=== PATIENT | female | born 1990 | race Caucasian/White ===

== ENCOUNTER 2024-11-21 11:25 | Emergency (ER) | payer OTHER, SELFPAY ==
[2024-11-21 11:37] VITALS: BP 146/82; PULSE 87; TEMP 36.7; O2SAT 100; BMI 2929.5
--- NOTE | 2024-11-21 12:04 | ED_ITS ---
HPI HPI - General Adult General Chief complaint: Urogenital-Female Stated complaint: FLANK PAIN Time Seen by Provider: 11/21/24 12:01 Source: patient Mode of arrival: walk-in History of Present Illness HPI narrative: 33-year-old female presents to the emergency department for right flank pain. She has had it for 2 weeks and it never goes away. It waxes and wanes. It was not precipitated by any trauma or injury. No dysuria or hematuria. She is never had pain like this before and she is never had a kidney stone. The pain is moderate to severe. Related Data Home Medications ?Medication ?Instructions ?Recorded ?Confirmed No Known Home Medications 11/21/24 11/21/24 Allergies Allergy/AdvReac Type Severity Reaction Status Date / Time No Known Drug Allergies Allergy Verified 11/21/24 11:37 Opioid HPI Opioid Management Most Recent Opioid Data: No Data to Display Review of Systems ROS Narrative A ten point review of systems is negative except as noted above. PFSH PFSH Social History Little interest or pleasure in doing things: not at all Feeling down, depressed, or hopeless: not at all Exam Narrative Exam Narrative: Nurses note and vital signs reviewed and patient is not hypoxic. General: The patient appears uncomfortable when she moves. Skin: Warm, dry, no pallor noted. There is no rash noted. Head: Normocephalic, atraumatic Eye: Normal conjunctiva, no drainage Ears, Nose, Mouth, and Throat: oral mucosa is moist. Nares patent. Cardiovascular: Regular Rate and Rhythm Respiratory: Patient is in no distress, no accessory muscle use, lungs are clear to auscultation, no wheezing, rales or rhonchi Back: non-tender, no CVA tenderness bilaterally to percussion. There is no bruise or rash on her back. GI: Soft and nontender Musculoskeletal: The patient has no evidence of calf tenderness, no pitting edema, symmetrical pulses noted bilaterally Neurological: A&O, normal speech Psychiatric: Cooperative Constitutional Vital Signs, click to edit/add: Last Vital Signs Temp 98.1 F 11/21/24 11:37 Pulse 87 11/21/24 11:37 Resp 16 11/21/24 11:37 BP 146/82 H 11/21/24 11:37 Pulse Ox 100 11/21/24 11:37 O2 Del Method Room Air 11/21/24 11:37 Course Vital Signs Vital signs: Vital Signs Temperature 98.1 F 11/21/24 11:37 Pulse Rate 87 11/21/24 11:37 Respiratory Rate 16 11/21/24 11:37 Blood Pressure 146/82 H 11/21/24 11:37 Pulse Oximetry 100 11/21/24 11:37 Oxygen Delivery Method Room Air 11/21/24 11:37 Temperature 98.1 F 11/21/24 11:37 Pulse Rate 87 11/21/24 11:37 Respiratory Rate 16 11/21/24 11:37 Blood Pressure 146/82 H 11/21/24 11:37 Pulse Oximetry 100 11/21/24 11:37 Oxygen Delivery Method Room Air 11/21/24 11:37 Medical Decision Making MDM Narrative Medical decision making narrative: CT scan is consistent with constipation. I have no clinical suspicion of appendicitis in this patient. She was recommended MiraLAX. Treatment diagnosis and follow-up were discussed with the patient. Differential Diagnosis Differential Diagnosis: Kidney stone, UTI, pyelonephritis, constipation Lab Data Lab results reviewed: Yes I reviewed the patient's lab results Labs: Lab Results 11/21/24 11/21/24 Range/Units 11:35 11:50 WBC 10.3 (4.0-11.0) 10^3/uL RBC 4.74 (4.20-5.40) 10^6/uL Hgb 14.0 (12.0-16.0) g/dL Hct 42.1 (36.0-48.0) % MCV 88.8 (81.0-99.0) fL MCH 29.5 (26.7-34.0) pg MCHC 33.3 (29.9-35.2) g/dL RDW 13.0 (11.0-15.0) % Plt Count 387 (150-450) 10^3/uL MPV 8.8 L (9.5-13.5) fL Neut % (Auto) 62.9 (43.0-75.0) % Lymph % (Auto) 28.9 (20.5-60.0) % [place] % (Auto) 5.9 (1.7-12.0) % Eos % (Auto) 1.2 (0.9-7.0) % Baso % (Auto) 0.7 (0.2-2.0) % Neut # (Auto) 6.5 (1.4-6.5) 10^3/uL Lymph # (Auto) 3.0 (1.2-3.8) 10^3/uL [place] # (Auto) 0.6 (0.3-0.8) 10^3/uL Eos # (Auto) 0.1 (0.0-0.7) 10^3/uL Baso # (Auto) 0.1 (0.0-0.1) 10^3/uL Abs Immat Gran (auto) 0.04 H (0.00-0.03) 10^3/uL Imm/Tot Granulo (auto) 0.4 (0.0-0.5) % Sodium 141 (136-145) mmol/L Potassium 3.8 (3.5-5.1) mmol/L Chloride 103 (98-107) mmol/L Carbon Dioxide 28.7 (21.0-32.0) mmol/L Anion Gap 13.1 BUN 7.0 (7.0-18.0) mg/dL Creatinine 0.71 (0.55-1.02) mg/dL Est GFR ( Amer) >60 (>=60 mL/min/1.73m^2) Est GFR (Non-Af Amer) >60 (>=60 mL/min/1.73m^2) BUN/Creatinine Ratio 9.9 Glucose 91 (74-106) mg/dL Calcium 8.5 (8.5-10.1) mg/dL Serum HCG, Qual Negative (NEGATIVE) Urine Color Lt. yellow (YELLOW) Urine Clarity Clear (CLEAR) Urine pH 6.5 (5.0-9.0) Ur Specific [place] 1.010 (1.005-1.025) Urine Protein Negative (NEG/TRACE) mg/dL Urine Glucose (UA) Negative (NEGATIVE) mg/dL Urine Ketones Negative (NEGATIVE) mg/dL Urine Occult Blood Negative (NEGATIVE) Urine Nitrite Negative (NEGATIVE) Urine Bilirubin Negative (NEGATIVE) Urine Urobilinogen 0.2 (0.2-1.0) EU/dL Ur Leukocyte Esterase Negative (NEGATIVE) Urine RBC 0-2 (0-2) #/HPF Urine WBC 0-2 A (NONE SEEN) #/HPF Ur Squamous Epith Cells Few A (NONE/RARE) #/LPF Urine Crystals None seen (None Seen) #/HPF Urine Bacteria Trace A (NONE SEEN) #/HPF Urine Casts None seen (NONE SEEN) #/LPF Urine Mucus Trace A (NONE SEEN) Discharge Plan Discharge Chief Complaint: Urogenital-Female Clinical Impression: Constipation Patient Disposition: Home, Self-Care Time of Disposition Decision: 14:57 Condition: Good Mode of Transportation: Private Vehicle Prescriptions / Home Meds: No Action No Known Home Medications Print Language: Danish Instructions: Constipation (ED) Additional Instructions: [id number] MiraLAX for constipation Referrals: Physician,Non-Staff, [Primary Care Provider] - 1 week
[2024-11-21 12:23] LABS: Basophils Absolute Auto 0.1 10^3/uL (0.0-0.1); Basophils Percent Auto 0.7 % (0.2-2.0); Eosinophils Absolute Auto 0.1 10^3/uL (0.0-0.7); Eosinophils Percent Auto 1.2 % (0.9-7.0); Hematocrit 42.1 % (36.0-48.0); Immature Granulocytes Abs Auto 0.04 10^3/uL (0.00-0.03); Immature Granulocytes Pct Auto 0.4 % (0.0-0.5); Lymphocytes Percent Auto 28.9 % (20.5-60.0); Mean Corpuscular HGB Conc 33.3 g/dL (29.9-35.2); Mean Corpuscular Hemoglobin 29.5 pg (26.7-34.0); Mean Corpuscular Volume 88.8 fL (81.0-99.0); Mean Platelet Volume 8.8 fL (9.5-13.5); Monocytes Absolute Auto 0.6 10^3/uL (0.3-0.8); Monocytes Percent Auto 5.9 % (1.7-12.0); Neutrophils Absolute Auto 6.5 10^3/uL (1.4-6.5); Neutrophils Percent Auto 62.9 % (43.0-75.0); Platelet Count 387 10^3/uL (150-450); Red Blood Count 4.74 10^6/uL (4.20-5.40); White Blood Count 10.3 10^3/uL (4.0-11.0)
[2024-11-21 12:29] LABS: Bilirubin Urine NEGATIVE (NEGATIVE); Blood Urine NEGATIVE (NEGATIVE); Clarity Urine CLEAR (CLEAR); Color Urine LT. YELLOW (YELLOW); Glucose Urine UA NEGATIVE (NEGATIVE); Ketones Urine NEGATIVE (NEGATIVE); Leukocyte Esterase Urine NEGATIVE (NEGATIVE); Nitrite Urine NEGATIVE (NEGATIVE); Protein Urine NEGATIVE (NEG/TRACE); Urobilinogen Urine 0.2 EU/dL (0.2-1.0); pH Urine 6.5 (5.0-9.0)
[2024-11-21 12:30] LABS: Anion Gap 13.1; BUN Creatinine Ratio 9.9; Calcium 8.5 mg/dL (8.5-10.1); Carbon Dioxide 28.7 mmol/L (21.0-32.0); Chloride 103 mmol/L (98-107); Estimated GFR (African America >60 (>=60 mL/min/1.73m^2); Estimated GFR (Non-African Ame >60 (>=60 mL/min/1.73m^2); Glucose 91 mg/dL (74-106); Potassium 3.8 mmol/L (3.5-5.1); Sodium 141 mmol/L (136-145)
[2024-11-21 12:31] LABS: HCG Qualitative NEGATIVE (NEGATIVE); Internal Control Within Normal Limits
[2024-11-21 13:06] LABS: Bacteria Urine TRACE #/HPF (NONE SEEN); Cast Seen? NONE SEEN #/LPF (NONE SEEN); Crystals Seen? None Seen #/HPF (None Seen); Mucus Urine TRACE (NONE SEEN); RBC Urine 0-2 #/HPF (0-2); Squamous Epithelial Cell Urine FEW #/LPF (NONE/RARE); WBC Urine 0-2 #/HPF (NONE SEEN)
--- NOTE | 2024-11-21 13:12 | CT_ITS ---
The [address] [address] Patient Name: CORIE GUIDRY MRN: [id number] date: 1990 Sex: F Assigned Patient Location: ER Current Patient Location: ER Accession/Order Number: [id number] Exam Date: 11/21/2024 13:44 Report Date: 11/21/2024 14:26 At the request of: WES NUNES Procedure: CT abdomen pelvis wo con EXAM: CT abdomen pelvis wo con HISTORY: Right flank pain COMPARISON: None. TECHNIQUE: Routine CT abdomen/pelvis without intravenous contrast. FINDINGS: The lung bases are unremarkable. The liver, contracted gallbladder, biliary tree, pancreas, spleen and bilateral adrenal glands are unremarkable. The bilateral kidneys and bilateral ureters are unremarkable. There is no renal or ureteral calculus or obstructive uropathy. Nonobstructive bowel gas pattern with a large amount of stool within the colon. There are colonic diverticula without diverticulitis. The appendix is mildly prominent measuring up to 6.9 mm in transverse dimension. There is no periappendiceal inflammatory reaction. Correlate with clinical and laboratory findings. The distal esophagus, stomach and small bowel are unremarkable. The abdominal aorta and the IVC are unremarkable. There is hazy attenuation within the mesentery and numerous small scattered mesenteric lymph nodes. Correlate with clinical findings of a mesenteritis or mesenteric adenitis. There is no free air, free fluid or abscess. There are no pathologically enlarged lymph nodes. The unopacified urinary bladder is unremarkable. The uterus and adnexal regions are unremarkable. There are pelvic phleboliths. There is a trace amount of fat extending into the umbilicus. The osseous structures are unremarkable. CT/CT abdomen pelvis wo con IMPRESSION: The bilateral kidneys and ureters are unremarkable. There is no renal or ureteral calculus or obstructive uropathy. Nonobstructive bowel gas pattern with a large amount of stool within the colon. There are colonic diverticula without diverticulitis. The appendix is mildly prominent measuring 6.9 mm in transverse dimension. There is no periappendiceal inflammatory reaction. Correlate with clinical and laboratory findings. There is hazy attenuation within the mesentery and numerous small scattered mesenteric lymph nodes. Correlate with clinical findings of a mesenteritis or mesenteric adenitis. There are no pathologically enlarged lymph nodes. Electronically authenticated by: DEVENDRA MUNIZ Date: 11/21/2024 14:26
== END 2024-11-21 15:11 | disposition home or self-care (01) ==
PROVIDERS: Emergency Provider Emergency Medicine
DX: K59.00 Constipation, unspecified (principal)
CPT/HCPCS: 36415; 74176; 80048; 81001; 84703; 85025; 99284